=== PATIENT | male | born 1980 | race Caucasian/White ===

== ENCOUNTER 2019-12-27 | Emergency (ER) | payer OTHER ==
[~2019-12-27] VITALS: Ht 182.9 cm; Wt 123.0 kg
--- NOTE | 2019-12-27 00:33 | PHYS DOC ---
Past Medical History Past Medical History: Hypertension Past Medical History obesity Past Surgical History: No Surgical History Smoking Status: Unknown if ever smoked Alcohol Use: Rarely Drug Use: None General Adult EDM: Chief Complaint: EYE PROBLEMS HPI: HPI: Patient is a 39 year old male who presents for evaluation of bilateral eye pain and face pain. Patient works as a journeyman pipe welder and although he states he was wearing proper equipment he appears to have burned his eyes. The swelling is present and he has difficulty opening his eyes due to pain. Furthermore he was also complaining of some shortness of air as blood pressure was elevated in triage. There is no reports of cough or upper respiratory symptoms. Review of Systems: Review of Systems: Constitutional: Denies fever or chills. [] Eyes: Blurry vision bilaterally, has trouble opening his eyes due to pain and there is bilateral upper and lower eyelid swelling. [] HENT: Denies nasal congestion or sore throat. [] Respiratory: Denies cough has shortness of breath. [] Cardiovascular: Denies chest pain or edema. [] GI: Denies abdominal pain, nausea, vomiting, bloody stools or diarrhea. [] : Denies dysuria. [] Musculoskeletal: Denies back pain or joint pain. [] Integument: Denies rash. [] Neurologic: Denies headache, focal weakness or sensory changes. [] Endocrine: Denies polyuria or polydipsia. [] Lymphatic: Denies swollen glands. [] Psychiatric: Denies depression or anxiety. [] Heart Score: Risk Factors: Risk Factors: DM, Current or recent (<one month) smoker, HTN, HLP, family history of CAD, obesity. Risk Scores: Score 0 - 3: 2.5% MACE over next 6 weeks - Discharge Home Score 4 - 6: 20.3% MACE over next 6 weeks - Admit for Clinical Observation Score 7 - 10: 72.7% MACE over next 6 weeks - Early Invasive Strategies Current Medications: Current Medications Medications (Trade) Dose Ordered Sig/Clarissa Start Time Stop Time Status Last Admin Dose Admin Fentanyl Citrate (Fentanyl 2ml Vial) 50 mcg 1X ONCE 12/27/19 01:00 12/27/19 01:01 Tetracaine HCl (Tetracaine) 2 drop 1X ONCE 12/27/19 01:00 12/27/19 01:01 Allergies: Allergies: Allergies Coded Allergies Type Severity Reaction Last Updated Verified Sulfa (Sulfonamide Antibiotics) Allergy Intermediate 12/27/19 Yes Physical Exam: PE: Constitutional: Well developed, well nourished, moderate acute distress, non- toxic appearance. [] HENT: Normocephalic, skin burn (sunburn) to face, bilateral external ears normal, oropharynx moist, no oral exudates, nose normal. [] Eyes: PERRL, EOMI, bilateral conjunctival erythema, corneal abrasions and injury noted on Thomas lamp exam, no obvious corneal ulceration. [] Neck: Normal range of motion, no tenderness, supple. [] Cardiovascular:Heart rate regular rhythm, no murmur [] Lungs & Thorax: Bilateral breath sounds clear to auscultation [] Abdomen: Bowel sounds normal, soft, no tenderness, no masses, no pulsatile masses. [] Skin: Warm, dry, erythema to face especially around eyes. [] Back: No tenderness. [] Extremities: No tenderness, no cyanosis, ROM intact, no edema. [] Neurologic: Alert and oriented X 3, normal motor function, normal sensory function, no focal deficits noted. [] Psychologic: Affect normal, judgement normal, mood normal. [] Current Patient Data: Labs: Laboratory Tests Test 12/27/19 00:50 White Blood Count 7.0 x10^3/uL Red Blood Count 5.75 x10^6/uL Hemoglobin 17.9 g/dL Hematocrit 51.9 % Mean Corpuscular Volume 90 fL Mean Corpuscular Hemoglobin 31 pg Mean Corpuscular Hemoglobin Concent 35 g/dL Red Cell Distribution Width 13.7 % Platelet Count 198 x10^3/uL Neutrophils (%) (Auto) 57 % Lymphocytes (%) (Auto) 26 % Monocytes (%) (Auto) 9 % Eosinophils (%) (Auto) 7 % Basophils (%) (Auto) 1 % Neutrophils # (Auto) 4.0 x10^3/uL Lymphocytes # (Auto) 1.8 x10^3/uL Monocytes # (Auto) 0.6 x10^3/uL Eosinophils # (Auto) 0.5 x10^3/uL Basophils # (Auto) 0.1 x10^3/uL Sodium Level 142 mmol/L Potassium Level 3.8 mmol/L Chloride Level 103 mmol/L Carbon Dioxide Level 30 mmol/L Anion Gap 9 Blood Urea Nitrogen 13 mg/dL Creatinine 1.2 mg/dL Estimated GFR (Cockcroft-Gault) 68.1 BUN/Creatinine Ratio 11 Glucose Level 105 mg/dL Calcium Level 8.2 mg/dL Total Bilirubin 0.2 mg/dL Aspartate Amino Transf (AST/SGOT) 30 U/L Alanine Aminotransferase (ALT/SGPT) 59 U/L Alkaline Phosphatase 100 U/L Troponin I Quantitative < 0.017 ng/mL Total Protein 6.6 g/dL Albumin 3.5 g/dL Albumin/Globulin Ratio 1.1 Current Medications Medications (Trade) Dose Ordered Sig/Clarissa Route PRN Reason Start Time Stop Time Status Last Admin Dose Admin Tetracaine HCl (Tetracaine) 2 drop 1X ONCE OU 12/27/19 01:00 12/27/19 01:01 DC 12/27/19 00:52 Fentanyl Citrate (Fentanyl 2ml Vial) 50 mcg 1X ONCE IVP 12/27/19 01:00 12/27/19 01:01 DC 12/27/19 00:51 Fluorescein Sodium (Ful-Toshia) 1 strip STK-MED ONCE .ROUTE 12/27/19 01:43 12/27/19 01:44 DC Erythromycin (Romycin) 0.25 inch 1X ONCE OS 12/27/19 02:30 12/27/19 02:31 DC 12/27/19 02:03 Acetaminophen/ Hydrocodone Bitart (Lortab 5/325) 2 tab 1X ONCE PO 12/27/19 02:30 12/27/19 02:31 DC 12/27/19 02:03 EKG: EKG: Normal sinus rhythm, rate 73, otherwise unremarkable EKG, not STEMI, slight strain pattern inferior leads [] Radiology/Procedures: Radiology/Procedures: CXR read by me showed no acute findings[] Course & Med Decision Making: Course & Med Decision Making Pertinent Labs and Imaging studies reviewed. (See chart for details) [] Dragon Disclaimer: Dragon Disclaimer: This electronic medical record was generated, in whole or in part, using a voice recognition dictation system. [id number] patient reassessed multiple times. His eye pain is under much better control at this time. His eye exam reveals that he likely has a Welders burn on his cornea. His blood pressure is now 150 over 70s systolic. He will see his doctor regarding this elevated blood pressure. As far as the work-up for shortness of air of the chest x-ray, cardiac work-up and EKG were stable. I advised him he had some subtle EKG changes that he would need to see his doctor about as well. Patient is aware he needs better long-term blood pressure control. Patient is aware he needs to see an eye doctor right away to get his eyes rechecked. Prescription for erythromycin ointment given. Thomas lamp exam with fluorescein showed that both cornea showed signs of injury and likely keratitis Departure Departure Impression: Primary Impression: Welders' keratitis of both eyes Additional Impressions: Elevated blood pressure reading Dyspnea Qualified Codes: R06.00 - Dyspnea, unspecified Disposition: HOME, SELF-CARE Condition: STABLE Referrals: ULICES LEONG MD Patient Instructions: Eye - Ultraviolet Keratitis, Managing Your High Blood Pressure Additional Instructions: Call an eye doctor for right away recheck of your eyes with the next 24 to 48 hours. Use the erythromycin ointment 4 times a day for the next 5 days as directed, keep close track of your home blood pressures. Scripts Hydrocodone/Apap 5-325 (NORCO 5-325 TABLET) 1 Each Tablet 1 TAB PO PRN Q6HRS PRN for PAIN, #10 TAB 0 Refills Prov: ASHLYN GRACIA DO 12/27/19 Erythromycin Base (Erythromycin) 1 Gm Oint...g. 1 GM OP QID for 5 Days, #1 MISC Prov: ASHLYN GRACIA DO 12/27/19 Justicifation of Admission Dx: Justifications for Admission: Justification of Admission Dx: N/A ASHLYN GRACIA DO Dec 27, 2019 00:33
[2019-12-27] MEDS ORDERED: TETRACAINE 0.5% OPHTH SOLUTION 4ML BOTTLE. OU ONE (01:00)
[2019-12-27] MEDS ORDERED: fentaNYL PF VIAL 100 MCG/2 ML VIAL IVP ONE (01:00)
[2019-12-27 01:02] LABS: BASO # 0.1 x10^3/uL (0.0-0.2); BASO % 1 % (0-3); EOS # 0.5 x10^3/uL (0.0-0.7); EOS % 7 % (0-3); HEMATOCRIT 51.9 % (39.0-53.0); HEMOGLOBIN 17.9 g/dL (13.0-17.5); LYMPH # 1.8 x10^3/uL (1.0-4.8); LYMPH % 26 % (24-48); MEAN CORPUSCULAR HEMOGLOBIN 31 pg (25-35); MEAN CORPUSCULAR HGB CONC 35 g/dL (31-37); MEAN CORPUSCULAR VOLUME 90 fL (79-100); MONO # 0.6 x10^3/uL (0.0-1.1); MONO % 9 % (0-9); NEUT % 57 % (31-73); PLATELET COUNT 198 x10^3/uL (140-400); RED BLOOD COUNT 5.75 x10^6/uL (4.30-5.70); RED CELL DISTRIBUTION WIDTH 13.7 % (11.5-14.5)
[2019-12-27 01:26] LABS: CALCIUM 8.2 mg/dL (8.5-10.1); CREATININE 1.2 mg/dL (0.7-1.3); GFR 68.1; POTASSIUM 3.8 mmol/L (3.5-5.1)
[2019-12-27 01:33] LABS: ALBUMIN 3.5 g/dL (3.4-5.0); ALBUMIN/GLOBULIN RATIO 1.1 (1.0-1.7); TOTAL BILIRUBIN 0.2 mg/dL (0.2-1.0); TOTAL PROTEIN 6.6 g/dL (6.4-8.2)
[2019-12-27] MEDS ORDERED: FLUORESCEIN OPHTH TEST STRIP. ONE (01:43)
[2019-12-27] MEDS ORDERED: ERYTHROMYCIN 0.5% OPHTH OINTMENT 1GM TUBE. OS ONE (02:30)
[2019-12-27] MEDS ORDERED: HYDROcodone/APAP 5/325MG 1 TAB TABLET PO ONE (02:30)
[2019-12-27 02:39] VITALS: BP 157/72
[2019-12-27] MEDS ORDERED: ERYT1OIN6 OP (02:47)
[2019-12-27] MEDS ORDERED: HYDR-3164 PO (02:49)
--- NOTE | 2019-12-27 04:15 | RAD ---
EXAM: CHEST ONE VIEW. HISTORY: Shortness of breath. COMPARISON: None. FINDINGS: A frontal view of the chest is obtained. There are no confluent infiltrates. There is no pneumothorax or pleural effusion. The heart is not enlarged. There is a chronic healed right rib fracture. IMPRESSION: 1. No confluent infiltrates. Electronically signed by: Hosea Otto MD (12/27/2019 4:12 AM) [facility]
--- NOTE | 2019-12-27 07:52 | EKG ---
[facility] [address] [place] [address] Test Date: 2019-12-27 Test Time: 00:29:49 Pat Name: MATTHEW SEXTON Department: Room: Gender: M Mechanical Engineering Manager: : [id number] Requested By: ASHLYN GRACIA Order Number: [id number] Reading MD: Measurements Intervals [place] Rate: 73 P: 33 [place]: 148 QRS: 67 QRSD: 98 T: 17 QT: 336 QTc: 373 Interpretive Statements SINUS RHYTHM QRS(T) CONTOUR ABNORMALITY CONSIDER ANTEROLATERAL MYOCARDIAL DAMAGE POSSIBLY ABNORMAL ECG RI6.01 No previous ECG available for comparison
== END 2019-12-27 03:03 | disposition home or self-care (01) ==
LOC: ER
DX: H16.133 Photokeratitis, bilateral (principal); R03.0 Elevated blood-pressure reading, without diagnosis of hypertension; R06.00 Dyspnea, unspecified; R51 Headache; I10 Essential (primary) hypertension; Z88.2 Allergy status to sulfonamides; E66.9 Obesity, unspecified; Z68.36 Body mass index [BMI] 36.0-36.9, adult
CPT/HCPCS: 36415; 71045; 80053; 84484; 85025; 93005; 96374; 99285; J3010